=== PATIENT | female | born 1980 | race African-American/Black ===

== ENCOUNTER 2021-01-05 05:30 | Day surgery (SDC) | payer OTHER ==
[2021-01-01 11:53] VITALS: BMI 29.6
[2021-01-05] MEDS ORDERED: METHYLENE BLUE 50 MG/10 ML AMPUL ONE (10:46)
[2021-01-05] MEDS ORDERED: oxyCODONE HCL 5 MG TABLET PO PRN (10:58)
[2021-01-05] MEDS ORDERED: ACETAMINOPHEN 325 MG TABLET (FP) PO PRN (10:58)
[2021-01-05] MEDS ORDERED: ONDANSETRON 4 MG/2 ML VIAL IVPUSH PRN (10:58)
[2021-01-05] MEDS ORDERED: LACTATED RINGERS SOLUTION 1,000 ML IV SCH (11:00)
[2021-01-05] MEDS ORDERED: PROPOFOL 20 ML ONE (11:14)
[2021-01-05] MEDS ORDERED: MIDAZOLAM HCL 2 MG/2 ML SINGLE DOSE VIAL ONE (11:15)
[2021-01-05] MEDS ORDERED: SUCCINYLCHOLINE CHLORIDE 200 MG/10 ML SYRINGE ONE (11:15)
[2021-01-05] MEDS ORDERED: ceFAZolin SODIUM 1 GM VIAL ONE (11:36)
[2021-01-05] MEDS ORDERED: ceFAZolin SODIUM 1 GM VIAL IVPB ONE (11:42)
[2021-01-05] MEDS ORDERED: ROCURONIUM BROMIDE 50 MG/5 ML SYRINGE ONE (11:48)
[2021-01-05] MEDS ORDERED: BUPIVACAINE HCL 50 ML ONE (11:59)
[2021-01-05] MEDS ORDERED: NEOSTIGMINE METHYLSULFATE 0.5 MG/ML - 10 ML MDV ONE (12:13)
[2021-01-05] MEDS ORDERED: KETOROLAC TROMETHAMINE 30 MG/1 ML VIAL ONE (12:26)
[2021-01-05] MEDS ORDERED: ONDANSETRON 4 MG/2 ML VIAL ONE (14:52)
[2021-01-05 16:20] VITALS: TEMP 97.2
[2021-01-05 16:26] VITALS: BP 166/69; PULSE 87
== END 2021-01-05 15:40 | disposition home or self-care (01) ==
LOC: JASU-SURG 05:30
PROVIDERS: ATTEND Specialist
PROC: 0UDB7ZX Extraction of Endometrium, Via Natural or Artificial Opening, Diagnostic (ICD-10-PCS; 2021-01-05)
PROC: 3E0P3KZ Introduction of Other Diagnostic Substance into Female Reproductive, Percutaneous Approach (ICD-10-PCS; 2021-01-05)
PROC: 0UJD4ZZ Inspection of Uterus and Cervix, Percutaneous Endoscopic Approach (ICD-10-PCS; 2021-01-05)
PROC: 0UB98ZX Excision of Uterus, Via Natural or Artificial Opening Endoscopic, Diagnostic (ICD-10-PCS; principal; 2021-01-05 11:00)
DX: N97.1 Female infertility of tubal origin (principal); N94.6 Dysmenorrhea, unspecified; D25.9 Leiomyoma of uterus, unspecified; N84.0 Polyp of corpus uteri; N73.6 Female pelvic peritoneal adhesions (postinfective)
CPT/HCPCS: 81025; 88305-TC; 94760; Q9968